=== PATIENT | male | born 1965 | race Caucasian/White ===

== ENCOUNTER 2020-07-21 09:23 | Emergency (ER) | payer OTHER, SELFPAY ==
[2020-07-21 09:25] VITALS: BP 144/75; PULSE 62; RESP 18; TEMP 36.5; O2SAT 96; BMI 41.0
[2020-07-21 09:33] VITALS: BP 142/107; PULSE 70; O2SAT 97
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
[2020-07-21 09:35] VITALS: BP 144/75; PULSE 62; O2SAT 97
--- NOTE | 2020-07-21 09:41 | XR_ITS ---
PROCEDURE: XR FINGER RT MIN 2V CLINICAL INDICATION: pain COMPARISON: No exams were available for comparison FINDINGS: No fracture or dislocation. No lytic or blastic change. There is normal mineralization. The joint spaces are well-preserved. No significant degenerative/arthritic changes. No erosive changes evident. Other findings:None. IMPRESSION: No acute findings. Dictated by: Mohamud Rodriguez MD 07/21/2020 11:49 Mohamud Rodriguez MD in [place] 07/21/2020 11:49
--- NOTE | 2020-07-21 09:41 | XR_ITS ---
PROCEDURE: XR PELVIS 1-2V CLINICAL INDICATION: pain Pelvic pain COMPARISON: No exams were available for comparison TECHNIQUE: XR Pelvis AP View FINDINGS: No fracture or dislocation is evident. There are mild osteoarthritic changes of the hips Some increased density is present involving the generalized bony structures. Please correlate with patient's clinical history and laboratory values. IMPRESSION: Mild osteoarthritis of the hips. Mild diffuse increase in bone density which could be related to hyperparathyroidism/hypercalcemia or renal osteodystrophy. Dictated by: Mohamud Rodriguez MD 07/21/2020 11:08 Mohamud Rodriguez MD in [place] 07/21/2020 11:08
[2020-07-21 10:37] VITALS: BP 134/72; PULSE 60; O2SAT 97
[2020-07-21 10:40] VITALS: BP 137/72; PULSE 60; RESP 20; TEMP 36.5; O2SAT 98
== END 2020-07-21 10:40 | disposition home or self-care (01) ==
PROVIDERS: Emergency Provider Family Medicine; PCP Family Medicine
DX: M25.641 Stiffness of right hand, not elsewhere classified (principal); M25.551 Pain in right hip; M25.552 Pain in left hip; W18.00XA Striking against unspecified object with subsequent fall, initial encounter; Y92.89 Other specified places as the place of occurrence of the external cause
CPT/HCPCS: 72170; 73140; 99282

== ENCOUNTER → 2021-03-09 09:44 | Outpatient (CLI) | payer OTHER, SELFPAY ==
--- NOTE | 2021-03-09 09:52 | XR_ITS ---
PROCEDURE: XR SHOULDER RT MIN 2V CLINICAL INDICATION: BILAT SHOULDER PAIN COMPARISON: No exams were available for comparison FINDINGS: No fracture or dislocation. No lytic or blastic change. There is normal mineralization. The joint spaces are well-preserved. No significant degenerative/arthritic changes. No erosive changes evident. Other findings:None. IMPRESSION: No acute findings. Dictated by: Mohamud Rodriguez MD 03/09/2021 14:37 Mohamud Rodriguez MD in [place] 03/09/2021 14:38
--- NOTE | 2021-03-09 09:52 | XR_ITS ---
PROCEDURE: XR SHOULDER LT MIN 2V CLINICAL INDICATION: BILAT SHOULDER PAIN COMPARISON: CR XR SHOULDER RT MIN 2V from 03/09/2021 FINDINGS: No fracture or dislocation. No lytic or blastic change. There is normal mineralization. Osteoarthritic changes are present at the glenohumeral joint and acromioclavicular joint. No significant subacromial stenosis. A well-circumscribed cystic lucency is noted along the inferior aspect of the scapular spine medially benign-appearing Other findings:None. IMPRESSION: Mild osteoarthritic changes Dictated by: Mohamud Rodriguez MD 03/09/2021 14:36 Mohamud Rodriguez MD in [place] 03/09/2021 14:36
== END ==
PROVIDERS: PCP Family Medicine; Visit Provider Family Medicine
DX: M25.512 Pain in left shoulder (principal); M25.511 Pain in right shoulder; G89.29 Other chronic pain
CPT/HCPCS: 73030

== ENCOUNTER 2021-12-15 15:14 | Emergency (ER) | payer MEDICARE, SELFPAY ==
--- NOTE | 2021-12-15 | ECG_ITS ---
APPROVED REPORT Exam: Resting ECG HR:63 bpm ECG Measurements Heart Rate 63 AXES WI 150 P 50 QRSd 95 QRS 13 QT 407 T 44 QTc 415 Conclusion SINUS RHYTHM NORMAL ECG UNCONFIRMED REPORT Electronically signed by : Lev Oconnor MD 12/16/2021 15:10:40
[2021-12-15 15:15] VITALS: BP 189/112; PULSE 79; RESP 16; TEMP 36.6; O2SAT 98; BMI 34.0; BMI 38.7
--- NOTE | 2021-12-15 15:43 | XR_ITS ---
PROCEDURE INFORMATION: Exam: XR Chest Exam date and time: 12/15/21 04:03 PM Age: 56 years old Clinical indication: Pain; Chest pressure; Additional info: Chest pain TECHNIQUE: Imaging protocol: Radiologic exam of the chest. Views: 1 view. COMPARISON: CR XR SHOULDER LT MIN 2V 03/09/21 09:55 AM FINDINGS: Lungs: Unremarkable. No consolidation. Pleural spaces: Unremarkable. No pleural effusion. No pneumothorax. Heart/Mediastinum: Unremarkable. No cardiomegaly. Bones/joints: Unremarkable. IMPRESSION: No acute findings.
[2021-12-15 15:48] LABS: Chloride 94 mmol/L (98-107)
[2021-12-15 15:48] LABS: Microscopic, Urine URINE MICROSCOPIC (MICROSCOPIC)
[2021-12-15 15:49] LABS: Potassium 3.8 mmoL/L (3.5-5.1); Sodium 136 mmol/L (136-145)
[2021-12-15 15:51] LABS: Alanine Aminotransferase 56 U/L (12-78); Aspartate Amino Transferase 47 U/L (17-59); Basophils # 0.1 K/mm3 (0-0.2); Basophils % 1.2 % (0.1-2.0); Blood Urea Nitrogen 12 mg/dl (9-20); Creatinine Clearance Estimated 184 mL/min (50-200); Eosinophils # 0.2 K/mm3 (0.0-0.4); Eosinophils % 1.9 % (0.1-12.0); Estimated Glomerular Filt Rate 117 ml/min (>60); GFR (African American) 142 ML/MIN (>60); Hematocrit 44.8 % (42.0-52.0); Hemoglobin 15.3 g/dL (14.1-18.0); Lymphocytes # 2.1 K/mm3 (0.7-4.5); Lymphocytes % 20.3 % (10-50); Mean Corpuscular HGB Conc 34.1 g/dL (31.8-35.4); Mean Corpuscular Hemoglobin 30.6 pg (27.0-31.2); Mean Corpuscular Volume 89.9 fl (80-94); Mean Platelet Volume 8.8 fl (7.4-10.4); Monocytes # 0.5 K/mm3 (0.1-1.0); Monocytes % 4.9 % (1.7-9.3); Neutrophils # 7.4 K/mm3 (1.8-7.8); Neutrophils % 71.7 % (37.0-80.0); Platelet Count 265 K/mm3 (142-424); Red Blood Count 4.99 M/mm3 (4.60-6.20); Red Cell Distribution Width 13.6 % (11.5-17.5); White Blood Count 10.3 K/mm3 (4.8-10.8)
[2021-12-15 15:52] LABS: Albumin Level 4.5 g/dl (3.5-5.0); Albumin/Globulin Ratio 1.3 (1.1-1.8); Alkaline Phosphatase 105 U/L (38-126); Anion Gap 16.8 mEq/L (5-15); Bilirubin,Total 0.4 mg/dl (0.2-1.3); Calcium 9.4 mg/dl (8.4-10.2); Carbon Dioxide 29 mmol/L (22.0-30.0); Globulin 3.4 g/dL (1.3-3.2); Glucose 367 mg/dl (74-100); Lipase 14 U/L (23-300); Total Protein,Serum 7.9 g/dl (6.3-8.2)
--- NOTE | 2021-12-15 16:00 | PC.NURSE ---
pt resting family at bedside
[2021-12-15 16:01] LABS: Appearance,Urine CLEAR (Clear); Bilirubin,Urine Negative (Negative); Blood, Urine Negative (Negative); Color,Urine YELLOW (Yellow); Glucose,Urine (UA) 3+ (Negative); Ketones,Urine Negative (Negative); Leukocyte Esterase,Urine Negative (Negative); Nitrate,Urine Negative (Negative); Protein,Urine Negative (Negative); Specific Gravity, Urine <= 1.005 (1.005-1.030); Urobilinogen,Urine 0.2 EU/dl (0.2)
[2021-12-15 16:11] LABS: Squamous Epithelial Cell,Urine Occasional #/hpf (0-5)
[2021-12-15 16:17] LABS: Troponin I < 0.01 ng/ml (0.00-0.034)
--- NOTE | 2021-12-15 16:18 | HMH.EDGENADL ---
Discharge Plan Disposition Patient Disposition: Home, Self-Care Condition: Good Prescriptions Prescriptions: New ondansetron 4 mg tablet,disintegrating 4 mg PO Q6HP PRN (Reason: nausea and vomiting) Qty: 12 0RF Referrals Follow up/Referrals: Morteza Velasco [Primary Care Provider] - See instructions Activity Restrictions/Add. Instructions Additional Instructions/Restrictions: Take Zofran as needed for nausea and vomiting. Talk to your primary care doctor about upper endoscopy for evaluation for H. pylori and further testing/treatment for gastroparesis. If you have any other concerning signs or symptoms, return to the ER or your primary care provider for further evaluation. Clinical Impressions Clinical Impression: Diabetic gastroparesis Discharge ED Provider: Zane Norman General Adult HPI General Stated complaint: abd pain, back pain, ROBLES Time Seen by Provider: 12/15/21 15:40 Mode of Arrival: Ambulatory Source of Information: Patient Limitations: No Limitations History of Present Illness HPI narrative: This is a 56-year-old male with history of gastritis, H. pylori, chronic abdominal pain who is presenting with acute on chronic abdominal pain. Patient states they were resting in bed when he had acute onset left flank pain radiates to his abdomen.. 7 out of 10, stabbing/sharp pain and associated with nausea, vomiting, diarrhea. Vomiting is nonbloody/nonbilious, diarrhea is nonbloody. Nothing in particular makes it better, but laying flat on his back seems to make it worse. Patient denies fevers, chills, chest pain, shortness of breath, dysuria, hematuria, history of kidney stones, or any other concerning history. Related Data Previous Rx's Medication Instructions Recorded ondansetron 4 mg disintegrating 4 mg PO Q6HP PRN nausea and 12/15/21 tablet vomiting #12 tabs Allergies Allergy/AdvReac Type Severity Reaction Status Date / Time No Known Allergies Allergy Verified 07/21/20 09:45 PFSH PFSH Social History Smoking Status: Never smoker alcohol intake: never current occupational status: unemployed and previously employed Travel in the last 8 weeks: None ROS Obtained: Yes All systems reviewed & no additional complaints except as documented Physical Exam General General appearance: alert and in no apparent distress Head Head exam: atraumatic, normocephalic and normal inspection Eye Eye exam: Present normal appearance, PERRL and EOMI ENT ENT exam: Present normal exam, normal oropharynx, mucous membranes moist, TM's normal bilaterally and normal external ear exam Neck Neck exam: Present normal inspection, full ROM and trachea midline; Absent meningismus or lymphadenopathy Chest Chest inspection: Present normal inspection and symmetric chest wall rise; Absent tenderness Respiratory Respiratory exam: Present normal lung sounds bilaterally; Absent respiratory distress Cardiovascular Cardiovascular exam: Present regular rate and normal rhythm; Absent JVD Abdominal Exam Abdominal exam: Present soft, distention and normal bowel sounds; Absent tenderness, guarding, rebound or rigidity Extremities Exam Extremities exam: Present normal inspection, full ROM and normal capillary refill; Absent calf tenderness Back Exam Back exam: Present normal inspection and CVA tenderness (L); Absent tenderness or CVA tenderness (R) Neurological Exam Neurological exam: Present alert and oriented X3 Psychiatric Psychiatric exam: Present normal affect and normal mood Skin Skin exam: Present warm, dry, intact and normal color Lymphatic Lymphatic Findings: no adenopathy Medical Decision Making Medical Records Medical records reviewed: Yes I reviewed the patient's medical records. Thomas Inquiry Pt receiving controlled substance: No Lab Data Lab Results 12/15/21 15:30: WBC 10.3, RBC 4.99, Hgb 15.3, Hct 44.8, MCV 89.9, MCH 30.6, MCHC 34.1, RDW 13.6, Plt Count 265, MPV 8.8, Neut % (Auto) 71.7, Lymph % (Auto
--- NOTE | 2021-12-15 16:21 | CT_ITS ---
PROCEDURE INFORMATION: Exam: CT Abdomen And Pelvis With Contrast Exam date and time: 12/15/21 04:30 PM Age: 56 years old Clinical indication: Abdominal pain; Generalized; Additional info: L flank pain and diffuse abdominal pain TECHNIQUE: Imaging protocol: Computed tomography of the abdomen and pelvis with contrast. Radiation optimization: All CT scans at this facility use at least one of these dose optimization techniques: automated exposure control; mA and/or kV adjustment per patient size (includes targeted exams where dose is matched to clinical indication); or iterative reconstruction. Contrast material: ISOVUE; Contrast volume: 75 ml; Contrast route: IV; COMPARISON: CR XR PELVIS 1-2V 07/21/20 09:43 AM FINDINGS: Tubes, catheters and devices: None noted. Lungs: Lung bases appear clear. Heart: No significant coronary calcifications. No cardiomegaly. No significant pericardial effusion. Liver: Fatty liver. No mass. Gallbladder and bile ducts: Cholecystectomy. No ductal dilation. Pancreas: Atrophic fatty replaced. No ductal dilation. Spleen: Normal. No splenomegaly. Adrenal glands: Normal. No mass. Kidneys and ureters: Normal. No hydronephrosis. Stomach and bowel: Unremarkable. No obstruction. No mucosal thickening. Appendix: No evidence of appendicitis. Intraperitoneal space: Unremarkable. No free air. No significant fluid collection. Retroperitoneal space: No significant retroperitoneal inflammatory changes are noted. Vasculature: Unremarkable. No abdominal aortic aneurysm. Lymph nodes: Unremarkable. No enlarged lymph nodes. Urinary bladder: Unremarkable as visualized. Reproductive: Unremarkable as visualized. Bones/joints: Unremarkable. No acute fracture. Soft tissues: Unremarkable. IMPRESSION: 1. No acute findings. 2. No CT evidence of nephroureterolithiasis.
--- NOTE | 2021-12-15 17:58 | PC.NURSE ---
ED MD AT BEDSIDE TO DISCUSS POC WITH PT AND
[2021-12-15 18:25] VITALS: BP 182/95; PULSE 69; RESP 16; TEMP 36.8; O2SAT 98
== END 2021-12-15 18:25 | disposition home or self-care (01) ==
PROVIDERS: Emergency Provider Emergency Medicine; PCP Family Medicine
DX: E11.43 Type 2 diabetes mellitus with diabetic autonomic (poly)neuropathy (principal); K31.84 Gastroparesis; R51.9 Headache, unspecified; M54.9 Dorsalgia, unspecified; G89.29 Other chronic pain
CPT/HCPCS: 36415; 71045; 74177; 80053; 81001; 83605; 83690; 84484; 85025; 93005; 96361; 96374; 96375; 96376; 99285; J2405; Q9967